=== PATIENT | female | born 1975 | race Caucasian/White ===

== ENCOUNTER 2018-08-02 09:05 | Emergency (ER) | payer BC ==
[~2018-08-02] VITALS: Ht 175.3 cm; Wt 104.3 kg
[2018-08-02] MEDS ORDERED: KETOROLAC TROMETHAMINE 60 MG/2 ML VIAL IM ONE (09:15)
--- NOTE | 2018-08-02 10:45 | Diagnostic Imaging Report ---
PROCEDURE:X-RAY LEFT KNEE, THREE OR MORE VIEWS COMPARISON:None. INDICATIONS:KNEE PAIN FINDINGS: Bones are well-mineralized. No acute displaced fracture or dislocation. Joint spaces are well-preserved. Small suprapatellar effusion. CONCLUSION: Small suprapatellar effusion, without underlying acute bony abnormality Milton Vides M.D. Dictated by: Milton Vides M.D. on 08/02/2018 at 10:54 Electronically approved by: Milton Vides M.D. on 08/02/2018 at 10:54
== END 2018-08-02 11:53 | disposition home or self-care (01) ==
LOC: ER 09:05
DX: S80.02XA Contusion of left knee, initial encounter (principal); V19.3XXA Pedal cyclist (driver) (passenger) injured in unspecified nontraffic accident, initial encounter; Y93.55 Activity, bike riding; Y92.410 Unspecified street and highway as the place of occurrence of the external cause; Z88.5 Allergy status to narcotic agent
CPT/HCPCS: 73562; 99283; J1885

== ENCOUNTER 2020-02-08 21:13 | Emergency (ER) | payer BC ==
[~2020-02-08] VITALS: Ht 175.3 cm; Wt 104.3 kg
--- OUTSIDE RECORDS SUMMARY | 2020-02-08 21:16 | XMS REPORT ---
Author Author [facility] t Organization [facility] Address 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 Allergies, Adverse Reactions, Alerts Allergy Name Allergy Type Status Severity Reaction(s) Onset Date Inacti ve Date Treating Clinician Comments Source Codeine Allergy to Substance Active Unknown 2018-08-02 00:00:00 [facility] No Known Allergies DA Active U 2018-07-30 00:00:00 [facility] No Known Allergies DA Active U 2015-11-07 00:00:00 [facility] Medications This patient has no known medications. Procedures This patient has no known procedures. Encounters Start Date/Time End Date/Time Encounter Type Admission Type [facility] Care Department Encounter ID Source 2019-09-28 19:54:00 2019-09-28 21:51:00 Departed Emergency Room [facility] [id number] [facility] Results Test Description Test Time Test Comments Results Result Comments Source KNEE LEFT THREE VIEWS 2018-08-02 10:54:00 [facility] [address] [address] Patient Name: SOLE VICK MR #: [id number] : 1975 Age/Sex: 42/F Req #: [id number] Adm Physician: Ordered by: LEIGH WHALEY MD Report #: [id number] Location: ER Room/Bed: Procedure: [id number] DX/KNEE LEFT THREE VIEWS Exam Date: Exam Time: REPORT STATUS: Signed PROCEDURE: X-RAY LEFT KNEE, THREE OR MORE VIEWS COMPARISON: None. INDICATIONS: KNEE PAIN FINDINGS: Bones are well-mineralized. No acute displaced fracture or dislocation. Joint spaces are well-preserved. Small suprapatellar effusion. CONCLUSION: Small suprapatellar effusion, without underlying acute bony abnormality Philip Vides M.D. Dictated by: Philip Vides M.D. on 08/02/2018 at 10:54 Electronically approved by: Philip Vides M.D. on 08/02/2018 at 10:54 Dictated By: PHILIP VIDES MD 1054 Transc ribed By: LUZ on 08/02/18 1054 COPY TO: LEIGH WHALEY MD
--- NOTE | 2020-02-08 21:32 | Emergency Department Note ---
History of Present Illnes History of Present Illness History of Present Illness This is a 44 year old female presents to the ED for new onset heel pain which started this AM. . 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 Onset (how long ago): day(s) Location: left heel Radiation: non-radiation Severity: mild Onset quality: sudden Duration (how long): day(s) Progression: unchanged Chronicity: new Context: recent illness, recent surgery, recent immobilization, recent travel, trauma/injury, new medications, hx of DVT/PE, non-compliance w/ medications, other Relieving factors: immobilization Exacerbating factors: other (weight bearing) Associated symptoms: denies other symptoms Treatments prior to arrival: none Past Medical/Family History Physician Review I have reviewed the patient's past medical and family history. Any updates have been documented here. Past Medical History Recent Fever: No Clinical Suspicion of Infectio: No Past Medical History: Cancer Other Medical History: BREAST 2011 Other Surgery: LEFT KNEE SCOPED. LT MINISCUS REPAIR Social History Smoking Cessation: Never Smoker Alcohol Use: None Any Illegal Drug Use: No Other Last Tetanus: 2017 Review of Systems Review of Systems Constitutional: no symptoms EENTM: no symptoms Cardiovascular: no symptoms Respiratory: no symptoms Gastrointestinal: no symptoms Genitourinary: no symptoms Musculoskeletal: other (foot/heel pain) Neurological: no symptoms Psychological: no symptoms Endocrine: no symptoms Hematological/Lymphatic: no symptoms Review of other systems All other systems reviewed and negative. Physical Exam Related Data Allergies: Coded Allergies: codeine (Verified Allergy, Unknown, 08/02/18) Triage Vital Signs Vital Signs Date Time Temp Pulse Resp B/P (MAP) Pulse Ox O2 Delivery O2 Flow Rate FiO2 02/08/20 21:31 97.8 76 17 137/69 98 Vital signs reviewed: Yes Physical Exam CONSTITUTIONAL Constitutional: well-developed, well-nourished HENT HENT: normocephalic, atraumatic, oropharynx clear/moist, nose normal HENT L/R: left ext ear normal, right ext ear normal EYES Eyes: PERRL, conjunctivae normal NECK Neck: ROM normal PULMONARY Pulmonary: effort normal, breath sounds normal CARDIOVASCULAR Cardiovascular: regular rhythm, heart sounds normal, capillary refill normal, normal rate GASTROINTESTINAL Abdominal: soft, nontender, bowel sounds normal GENITOURINARY Genitourinary: exam deferred SKIN Skin: warm, dry MUSCULOSKELETAL Musculoskeletal: ROM normal, other (tenderness to medial plantar tubercle of the left heel) NEUROLOGICAL Neurological: alert, oriented x 3, no gross motor or sensory deficits PSYCHOLOGICAL Psychological: mood/affect normal, judgement normal Assessment & Plan Assessment & Plan Final Impression: (1) Plantar fasciitis of left foot Assessment & Plan Patient given Rx for pain control. Pt to f/u with Dr Mike LORD as an outpatient. Depart Disposition: HOME, SELF-CARE Last Vital Signs Date Time Temp Pulse Resp B/P (MAP) Pulse Ox O2 Delivery O2 Flow Rate FiO2 02/08/20 21:31 97.8 76 17 137/69 98 LORI HOUSER DO February 08, 2020 21:32
== END 2020-02-08 21:37 | disposition home or self-care (01) ==
LOC: ER 21:13
DX: M79.672 Pain in left foot (principal); M72.2 Plantar fascial fibromatosis; Z85.3 Personal history of malignant neoplasm of breast
CPT/HCPCS: 99282

== ENCOUNTER 2020-06-09 00:13 | Emergency (ER) | payer BC ==
[~2020-06-09] VITALS: Ht 175.3 cm; Wt 104.3 kg
[2020-06-09] MEDS ORDERED: KETOROLAC TROMETHAMINE 30 MG/ML VIAL IV STA (00:21)
[2020-06-09] MEDS ORDERED: ONDANSETRON HCL INJ 2MG/ML 2ML 2 MG/ML VIAL IV STA (00:24)
[2020-06-09 00:30] LABS: BASOPHILS % 0.5 % (0.0-1.0); EOSINOPHILS % 0.5 % (0.0-6.0); HEMATOCRIT 38.7 % (34.2-44.1); HEMOGLOBIN 13.1 g/dL (12.0-16.0); LYMPHOCYTES # (AUTO) 1.7 (1.0-3.2); MEAN CORPUSCULAR HGB CONC 33.9 g/dL (31-35); MEAN CORPUSCULAR VOLUME 91.7 fL (81-99); MONOCYTES # (AUTO) 0.5 (0.2-0.8); MONOCYTES % 5.1 % (4.4-11.3); NEUTROPHILS # (AUTO) 6.6 (2.1-6.9); NEUTROPHILS % 74.6 % (38.7-80.0); PLATELET COUNT 247 x10e3/uL (140-360); RED BLOOD COUNT 4.22 x10e6/uL (3.6-5.1); RED CELL DISTRIBUTION WIDTH 11.8 % (11.7-14.4)
[2020-06-09] MEDS ORDERED: ACETAMIN/BUTALBITAL/CAFFEINE TAB PO ONE (00:30)
[2020-06-09] MEDS ORDERED: METOCLOPRAMIDE HCL 10 MG/2ML VIAL IV ONE (00:30)
[2020-06-09] MEDS ORDERED: SODIUM CHLORIDE 0.9% 1000ML 1,000 ML IV ONE (00:30)
[2020-06-09] MEDS ORDERED: DIPHENHYDRAMINE HCL INJ 50 MG/ML VIAL IV ONE (00:30)
--- NOTE | 2020-06-09 00:37 | Emergency Department Note ---
History of Present Illnes History of Present Illness Chief Complaint: Headache History of Present Illness This is a 44 year old female arrived to the ED with complaints of a headache which feels like her usual migraines. Pt denies any weakness, blurry vision difficulty ambulating or any other neurological complaints. Historian: Patient Arrival Mode: Car Onset (how long ago): hour(s) Radiation: Reports non-radiation Severity: mild Duration (how long): hour(s) Timing of current episode: constant Progression: worsening Chronicity: recurrent Past Medical/Family History Physician Review I have reviewed the patient's past medical and family history. Any updates have been documented here. Past Medical History Recent Fever: No Clinical Suspicion of Infectio: No New/Unexplained Change in Ment: No Past Medical History: Cancer Other Medical History: BREAST 2011 Other Surgery: LEFT KNEE SCOPED. LT MINISCUS REPAIR Social History Smoking Cessation: Never Smoker Counseling Performed: No Other Last Tetanus: 2017 Review of Systems Review of Systems Constitutional: Reports no symptoms EENTM: Reports no symptoms; Denies blurred vision Cardiovascular: Reports no symptoms Respiratory: Reports no symptoms Gastrointestinal: Reports no symptoms Genitourinary: Reports no symptoms Musculoskeletal: Reports no symptoms Integumentary: Reports no symptoms Neurological: Reports as per HPI, Reports headache; Denies numbness, Denies paresthesia, Denies seizure, Denies tingling, Denies weakness Psychological: Reports no symptoms Endocrine: Reports no symptoms Hematological/Lymphatic: Reports no symptoms Physical Exam Related Data Allergies: Coded Allergies: codeine (Verified Allergy, Unknown, 08/02/18) Triage Vital Signs Vital Signs Date Time Temp Pulse Resp B/P (MAP) Pulse Ox O2 Delivery O2 Flow Rate FiO2 06/09/20 00:16 97.8 88 17 136/87 100 Room Air Vital signs reviewed: Yes Physical Exam CONSTITUTIONAL Constitutional: Present well-developed, Present well-nourished HENT HENT: Present normocephalic, Present atraumatic, Present oropharynx clear/moist, Present nose normal HENT L/R: Present left ext ear normal, Present right ext ear normal EYES Eyes: Reports PERRL, Reports conjunctivae normal NECK Neck: Present ROM normal PULMONARY Pulmonary: Present effort normal, Present breath sounds normal CARDIOVASCULAR Cardiovascular: Present regular rhythm, Present heart sounds normal, Present capillary refill normal, Present normal rate GASTROINTESTINAL Abdominal: Present soft, Present nontender, Present bowel sounds normal GENITOURINARY Genitourinary: Present exam deferred SKIN Skin: Present warm, Present dry MUSCULOSKELETAL Musculoskeletal: Present ROM normal NEUROLOGICAL Neurological: Present alert, Present oriented x 3, Present no gross motor or sensory deficits PSYCHOLOGICAL Psychological: Present mood/affect normal, Present judgement normal Results Laboratory Lab results reviewed: Yes Assessment & Plan Medical Decision Making MDM 44-year-old female arrived to the ED with complaints of a headache. Patient states symptoms feel like her usual migraines. Patient received Benadryl, Reglan, IV fluids and ketorolac with improvement of symptoms noted. Patient amatory steady gait and stable for discharge home. Outpatient neurology follow- up given. Assessment & Plan Final Impression: (1) Migraine Depart Disposition: HOME, SELF-CARE Last Vital Signs Date Time Temp Pulse Resp B/P (MAP) Pulse Ox O2 Delivery O2 Flow Rate FiO2 06/09/20 00:16 97.8 88 17 136/87 100 Room Air Home Meds Active Scripts Metoclopramide Hcl (REGLAN) 10 Mg Tablet, 10 MG PO Q8HR PRN for HEADACHE, #14 TAB Prov:HEATHER FELIX, DO 06/09/20 Butalb/Acetaminophen/Caffeine (Fioricet 50-300-40 mg Capsule) 1 Each Capsule, 1 TAB PO Q8HR PRN for HEADACHE, #14 Prov:GRACERCURTISICA, DO 06/09/20 Medications in the ED Acetaminophen/ Butalbital/ Caffeine 1 ea ONCE ONCE PO ; Start 06/09/20 at 00:30; Stop 06/09/20 at 00:31; Status UNV Metoclopramide HCl 10 mg ONCE ONCE IV ; Start 06/09/20 at 00:30; Stop 06/09/20 at 00:31; Status UNV Diphenhydramine HCl 25 mg NOW ONCE IV ; Start 06/09/20 at 00:30; Stop 06/09/20 at 00:31; Status UNV Sodium Chloride 1,000 ml @ 0 mls/hr Q0M ONCE IV ; Start 06/09/20 at 00:30; Stop 06/09/20 at 00:31 Ketorolac Tromethamine 30 mg ONCE STAT IV ; Start 06/09/20 at 00:21; Stop 06/09/20 at 00:22; Status UNV Ondansetron HCl 4 mg NOW STAT IV ; Start 06/09/20 at 00:24; Stop 06/09/20 at 00:25; Status SHAUNNAV HEATHER FELIX, Jun 09, 2020 00:37
[2020-06-09 00:50] LABS: ALANINE AMINOTRANSFERASE 30 IU/L (0-55); ALBUMIN/GLOBULIN RATIO 1.2 (0.8-2.0); ALKALINE PHOSPHATASE 61 IU/L (40-150); ANION GAP 12.9 mmol/L (8-16); BLOOD UREA NITROGEN 11 mg/dL (7-26); BUN/CREATININE RATIO 16 (6-25); CALCIUM 8.6 mg/dL (8.4-10.2); CARBON DIOXIDE 21 mmol/L (22-29); CHLORIDE 106 mmol/L (98-107); EST GLOMERULAR FILTRATION RATE > 60 ML/MIN (60-); GLUCOSE 113 mg/dL (74-118); POTASSIUM 3.9 mmol/L (3.5-5.1); SODIUM 136 mmol/L (136-145)
[2020-06-09 02:45] VITALS: BP 114/65
[2020-06-09] MEDS ORDERED: REGLAN10 MG PO (02:46)
[2020-06-09] MEDS ORDERED: FIORICET 50-301 EACH PO (02:46)
== END 2020-06-09 02:58 | disposition home or self-care (01) ==
LOC: ER 00:29
DX: G43.909 Migraine, unspecified, not intractable, without status migrainosus (principal); Z85.3 Personal history of malignant neoplasm of breast
CPT/HCPCS: 36415; 80053; 84702; 85025; 99283; J1200; J1885; J2405; J2765; J7030

== ENCOUNTER 2021-09-16 12:13 | Emergency (ER) | payer SELFPAY ==
[~2021-09-16] VITALS: Ht 175.3 cm; Wt 104.3 kg
[~2021-09-16 12:13] MED LIST: FIORICET 50-301 EACH PO; REGLAN10 MG PO
== END 2021-09-16 13:05 | disposition home or self-care (01) ==
LOC: ER 12:35
DX: R05.9 Cough, unspecified (principal); Z20.822 Contact with and (suspected) exposure to COVID-19; Z88.6 Allergy status to analgesic agent
CPT/HCPCS: 99283

== ENCOUNTER 2022-06-23 16:03 | Emergency (ER) | payer BC ==
[~2022-06-23] VITALS: Ht 175.3 cm; Wt 115.7 kg
[2022-06-23] MEDS ORDERED: ASPIRIN 325 MG TAB PO ONE (16:30)
[2022-06-23] MEDS ORDERED: ONDANSETRON HCL INJ 2MG/ML 2ML 2 MG/ML VIAL IV PRN (16:30)
[2022-06-23 16:51] LABS: BASOPHILS # (AUTO) 0.1 (0.0-0.1); BASOPHILS % 0.6 % (0.0-1.0); EOSINOPHILS # (AUTO) 0.1 (0.0-0.4); HEMATOCRIT 41.8 % (34.2-44.1); HEMOGLOBIN 13.8 g/dL (12.0-16.0); LYMPHOCYTES # (AUTO) 1.8 (1.0-3.2); MEAN CORPUSCULAR HEMOGLOBIN 31.8 pg (28-32); MEAN CORPUSCULAR VOLUME 96.3 fL (81-99); MONOCYTES # (AUTO) 0.6 (0.2-0.8); MONOCYTES % 5.7 % (4.4-11.3); NEUTROPHILS # (AUTO) 7.6 (2.1-6.9); NEUTROPHILS % 74.3 % (38.7-80.0); PLATELET COUNT 234 x10e3/uL (140-360); RED BLOOD COUNT 4.34 x10e6/uL (3.6-5.1); RED CELL DISTRIBUTION WIDTH 11.2 % (11.7-14.4)
[2022-06-23 17:02] LABS: INR 0.89; PROTHROMBIN TIME 12.9 seconds (11.9-14.5)
[2022-06-23 17:07] LABS: MAGNESIUM 1.9 MG/DL (1.3-2.1)
[2022-06-23 17:10] LABS: ALANINE AMINOTRANSFERASE 46 IU/L (0-55); ALBUMIN 3.7 g/dL (3.5-5.0); ALBUMIN/GLOBULIN RATIO 1.1 (0.8-2.0); ALKALINE PHOSPHATASE 53 IU/L (40-150); ANION GAP 13.8 mmol/L (8-16); BLOOD UREA NITROGEN 11 mg/dL (7-26); BUN/CREATININE RATIO 14 (6-25); CALCIUM 9.1 mg/dL (8.4-10.2); CARBON DIOXIDE 21 mmol/L (22-29); CHLORIDE 109 mmol/L (98-107); CREATININE, SERUM 0.77 mg/dL (0.57-1.11); GLUCOSE 96 mg/dL (74-118); POTASSIUM 3.8 mmol/L (3.5-5.1); SODIUM 140 mmol/L (136-145)
[2022-06-23 17:58] VITALS: BP 129/73
== END 2022-06-23 17:59 | disposition home or self-care (01) ==
LOC: ER 16:06
DX: R07.89 Other chest pain (principal); R00.2 Palpitations; M54.2 Cervicalgia; Z82.49 Family history of ischemic heart disease and other diseases of the circulatory system; Z85.3 Personal history of malignant neoplasm of breast; Z88.5 Allergy status to narcotic agent
CPT/HCPCS: 36415; 71045; 80053; 83735; 83880; 84443; 84484; 85025; 85379; 85610; 93005; 99284; J2405